=== PATIENT | female | born 1965 | race Caucasian/White ===

== ENCOUNTER → 2017-09-27 | Outpatient (CLI) | payer OTHER ==
--- NOTE | 2017-09-27 14:32 | US ---
EXAMINATION TYPE: US pelvis complete transvag DATE OF EXAM: 09/27/2017 COMPARISON: Ultrasound 10/19/2012 CLINICAL HISTORY: R10.814 Left lower quadrant abdominal tenderness. TECHNIQUE: Transvaginal (TV) and Transabdominal (TA) . Transabdominal sonographic images of the pel vis were acquired. Transvaginal sonographic images were medically necessary to better assess the fol lowing anatomy: Date of LMP: 2 to 3 months prior, patient unsure which EXAM MEASUREMENTS: Uterus: 8.4 x 6.2 x 6.6 cm Endometrial Stripe: 0.9 cm Right Ovary: Obscured by overlying bowel gas Left Ovary: 3.3 x 2.0 x 2.2 cm 1. Uterus: Retroverted, 3 fibroids noted (seen previously as well) 1.) upper 3.5 x 2.4 x 2.9cm, 2.) lower, 2.4 x 1.7 x 2.3cm 3.)1.2 x 0.9 x 1.1cm 2. Endometrium: 0.9cm, 2 to 3 months since last menses, patient 51 3. Right Ovary: Obscured by overlying bowel gas 4. Left Ovary: simple appearing cyst measuring 2.6 x 1.7 x 1.7cm 5. Bilateral Adnexa: wnl 6. Posterior cul-de-sac: wnl IMPRESSION: 1. Small uterine fibroids. 2. Simple left ovarian cyst.
== END | disposition home or self-care (01) ==
LOC: RADUSWWP 13:36
PROVIDERS: ATTEND Family Medicine
DX: D25.9 Leiomyoma of uterus, unspecified (principal); N83.202 Unspecified ovarian cyst, left side
CPT/HCPCS: 76830; 76856

== ENCOUNTER → 2017-11-01 | Outpatient (CLI) | payer OTHER ==
--- NOTE | 2017-11-01 12:42 | MM ---
Reason for exam: screening (asymptomatic). Last mammogram was performed 2 years and 11 months ago. History: Family history of breast cancer in paternal aunt. Physical Findings: A clinical breast exam by your physician is recommended on an annual basis and results should be correlated with mammographic findings. MG 3D Screening Mammo W/Cad Bilateral CC and MLO view(s) were taken. Prior study comparison: November 19, 2014, bilateral MG screening mammo w CAD. November 09, 2012, CAD bilateral diagnostic mammogram. The breast tissue is heterogeneously dense. This may lower the sensitivity of mammography. There is a round, stable left central upper mass back to 2012. No suspicious abnormality. Stable left breast upper outer quadrant and lower inner quadrant focal asymmetries. ASSESSMENT: Benign, BI-RAD 2 RECOMMENDATION: Routine screening mammogram of both breasts in 1 year.
== END | disposition home or self-care (01) ==
LOC: RADMAMWWP 07:11
PROVIDERS: ATTEND Family Medicine
DX: Z12.31 Encounter for screening mammogram for malignant neoplasm of breast (principal)
CPT/HCPCS: 77063; 77067

== ENCOUNTER → 2017-11-02 | Outpatient (CLI) | payer OTHER ==
--- NOTE | 2017-11-02 13:28 | US ---
EXAMINATION TYPE: US kidneys/renal and bladder DATE OF EXAM: 11/02/2017 COMPARISON: Xray earlier today. CLINICAL HISTORY: N20.0 Kidney Stones. Pt states left flank pain, recent abnormal xray EXAM MEASUREMENTS: Right Kidney: 11.2 x 5.7 x 5.7 cm Left Kidney: 11.4 x 6.5 x 6.3 cm Right Kidney: No evidence of hydro, possible calculus lower pole= 5mm Left Kidney: Probable, multiple calculi scattered throughout with largest at mid= 1.7 cm, other calcu li sub-centimeter, possible mild hydro seen Bladder: wnl Bilateral Jets seen: No The urinary bladder is anechoic. Bilateral ureteral jets are not seen. No hydronephrosis or suspicio us masses seen in the right-sided kidney on images saved. Nonspecific 5 mm nonshadowing hyperechoic f ocus is marked by technologist lower pole level right kidney. Cortical medullary differentiation left kidney is maintained. There is large shadowing 1.7 cm structu re centrally in left kidney likely reflects pelvic calculus seen on x-ray. There is mild fullness of the calyces on images saved. Smaller adjacent calculi less well seen on ultrasound. IMPRESSION: Confirmation of a 1.7 cm left pelvic calculus believed to be causing mild hydronephrosis. Urology ref erral advised.
== END | disposition home or self-care (01) ==
LOC: RADUSWWP 12:21
PROVIDERS: ATTEND Family Medicine
DX: N13.2 Hydronephrosis with renal and ureteral calculous obstruction (principal)
CPT/HCPCS: 74018; 76770; 87086

== ENCOUNTER → 2017-11-02 | Outpatient (CLI) | payer OTHER ==
--- NOTE | 2017-11-02 11:40 | XR ---
EXAMINATION TYPE: XR abdomen 1V DATE OF EXAM: 11/02/2017 10:43 AM CLINICAL HISTORY: Left lower quadrant pain with gross hematuria. TECHNIQUE: Single supine KUB image of the abdomen is obtained. COMPARISON: None. FINDINGS: There is dominant slightly irregular marginated but oval shaped 18 mm calculus mid pole lev el left kidney overlying left 12th rib. There are 3-5 adjacent smaller calculi throughout the left ki dney. Suspect tiny 2 mm calculus right kidney at L2 level. Overall nonobstructive bowel gas pattern. Visualized osseous structures are intact. IMPRESSION: Dominant 18 mm left sided calculus. Urology referral advised.
== END ==
LOC: RADXRYALE 10:24
PROVIDERS: ATTEND Family Medicine
DX: N20.0 Calculus of kidney (principal)
CPT/HCPCS: 74018

== ENCOUNTER → 2017-12-02 | Outpatient (CLI) | payer OTHER | END | disposition home or self-care (01) | LOC: LABPAT 16:55 | PROVIDERS: ATTEND Urology | DX: Z01.812 Encounter for preprocedural laboratory examination (principal); N20.0 Calculus of kidney; R31.29 Other microscopic hematuria | CPT/HCPCS: 87086 ==

== ENCOUNTER → 2017-12-09 | Day surgery (SDC) | payer OTHER ==
[2017-12-06 17:59] VITALS: BMI 33.3
--- NOTE | 2017-12-06 21:50 | P.GSHP ---
History of Present Illness H&P Date: 12/05/17 Chief Complaint: Left flank pain The patient is a 52-year-old white female with a history of urolithiasis. She recently presented with a two-week history of left flank and left lower quadrant abdominal pain. She was found to have mild left hydronephrosis due to a 70 mm left renal pelvic calculus. She underwent left ureteral stent insertion and ESWL. The calculus fragmented, but there is a large intact calculus at the ureteropelvic junction. - Constitutional Constitutional: Reports chills - Gastrointestinal Gastrointestinal: Reports nausea, Reports vomiting - Genitourinary (Female) Genitourinary: Reports kidney stones Past Medical History Past Medical History: No Reported History History of Any Multi-Drug Resistant Organisms: None Reported Past Surgical History: No Surgical Hx Reported Past Anesthesia/Blood Transfusion Reactions: No Reported Reaction Smoking Status: Never smoker - Past Family History Mother Family Medical History: No Reported History Medications and Allergies Home Medications Medication Instructions Recorded Confirmed Type Citalopram Hydrobromide [CeleXA] 20 mg PO DAILY 07/15/15 12/06/17 History Meloxicam [Mobic] 15 mg PO DAILY 07/15/15 12/06/17 History HYDROcodone/APAP 7.5-325MG [[place] 1 tab PO TID 12/06/17 12/06/17 History 7.5-325] Allergies Allergy/AdvReac Type Severity Reaction Status Date / Time No Known Allergies Allergy Verified 12/06/17 17:39 Surgical - Exam - General well developed, well nourished, no distress - Neck no masses, trachea midline - Respiratory normal respiratory effort, clear to auscultation - Cardiovascular Rhythm: regular Abnormal Heart Sounds: no systolic murmur, no diastolic murmur, no rub, no S3 Gallop, no S4 Gallop, no click, no other - Abdomen Abdomen: soft, non tender, no guarding, no rigid, no rebound - Psychiatric oriented to time, oriented to person, oriented to place, speech is normal, memory intact Assessment and Plan (1) Calculus of kidney Status: Acute Code(s): N20.0 - CALCULUS OF KIDNEY SNOMED Code(s): 19893645 Plan: Cystoscopy, left ureteroscopy with holmium laser lithotripsy. The procedure was reviewed in detail with the patient. Potential risks include anesthesia, bleeding, infection, and ureteral perforation. She understands that she has a large stone burden and may require additional procedures.
[~2017-12-09] MED LIST: DEXAMETHASONE SOD PHOSPHATE 10 MG/ML 1 ML VIAL IV ONE; HYDROmorphone (PF) 1 MG/ML ONE; LACTATED RINGERS 1,000 ML IV ONE; LIDOCAINE 1% INJ 10MG/ML (20 ML MDV) ONE; MIDAZOLAM 2 MG/2 ML VIAL ONE; ONDANSETRON 4 MG/2 ML VIAL IVP ONE; PROPOFOL 10 MG/ML 20 ML VIAL IV ONE; SUCCINYLCHOLINE CHLORIDE 100 MG/5 ML SYR IV ONE; ceFAZolin IN SWFI 2 GM/20 ML SYRINGE IVP ONE; fentaNYL (PF) 50 MCG/ML 2 ML AMP ONE
[2017-12-09 08:59] VITALS: RESP 16
--- NOTE | 2017-12-09 09:03 | XR ---
EXAMINATION TYPE: XR KUB DATE OF EXAM: 12/09/2017 COMPARISON: None INDICATION: Preop left kidney stone TECHNIQUE: Single view abdomen frontal projection FINDINGS: There is a normal bowel gas pattern. Psoas margins are normal. No organomegaly is present. There is a 2.5 x 2.1 cm calcification adjacent to a left ureteral stent at the left renal pelvis. A 0 .3 cm inferior pole left renal stone is also noted. IMPRESSION: 1. Stent adjacent to a large left renal pelvic stone
[2017-12-09] MEDS: LACTATED RINGERS 1,000 ML IV SCH ×2 (09:05→09:52)
[2017-12-09 12:55] VITALS: TEMP 96.8
--- NOTE | 2017-12-09 12:55 | FL ---
Fluoroscopy INDICATION: Pain, renal stone FINDINGS: Fluoroscopy time: 39 seconds. Images obtained: 1. IMPRESSIONS: 1. Documentation of fluoroscopy.
--- NOTE | 2017-12-09 13:03 | P.OP ---
Date of Procedure: 12/09/17 Preoperative Diagnosis: Left renal calculus Postoperative Diagnosis: Same Procedure(s) Performed: Cystoscopy, left ureteroscopy with Holmium laser lithotripsy, left ureteral stent change Anesthesia: GETA Surgeon: Luis Manuel Romeo Estimated Blood Loss (ml): 10 IV fluids (ml): 800 Pathology: none sent Condition: stable Disposition: PACU Indications for Procedure: The patient is a 52-year-old white female with a history of urolithiasis. She recently presented with a two-week history of left flank and left lower quadrant abdominal pain. She was found to have mild left hydronephrosis due to a 70 mm left renal pelvic calculus. She underwent left ureteral stent insertion and ESWL. The calculus fragmented, but there is a large intact calculus at the ureteropelvic junction. Operative Findings: Large left upper pole renal calculus, fragmented to completion. Description of Procedure: The patient was taken to the operating room and placed in the dorsolithotomy position, with legs supported in Jacob stirrups. The external genitalia was prepped and draped sterilely. The 30 lens was used to introduce the 22-Congolese Stortz cystoscopic sheath through the urethra and into the bladder under direct vision. The bladder was unremarkable. Grasping forceps were used to grasp the distal end of the left ureteral stent, which was removed along with the cystoscope. A 0.038 inch Glidewire was passed through the left ureteral stent and up to the left renal pelvis. The stent was removed, and an 11/13-Congolese ureteral access catheter was passed over the wire, up to the proximal ureter. The mini flexible ureteroscope was passed through the ureteral access catheter sheath and up to the left renal pelvis. The large calculus was identified within an upper pole calyx. The 200 micron Holmium laser probe was passed through the ureteroscope, and lithotripsy was performed. The calculus was very large, and was partially fragmented as a result of ESWL. Fortunately, the calculus was not particularly dense and ultimately fragmented well. Lithotripsy was continued until there were no residual calculus fragments exceeding 2-3 mm in size. Fluoroscopy was periodically utilized to assess the progress of the procedure. A streak-like opacification was seen on fluoroscopy , but the ureteroscope was advanced into a calyx corresponding with the spot and a calculus was not seen. The ureteroscope was removed along with the ureteral access catheter sheath. The cystoscope was replaced into the bladder. The Glidewire was passed up to the left renal pelvis, and the stent was replaced over the wire. Proper stent positioning was verified fluoroscopically and endoscopically. The bladder was emptied and the cystoscope removed. The patient tolerated the procedure well and was taken to the recovery room in stable condition.
[2017-12-09] MEDS: HYDROmorphone 0.5 MG/0.5 ML SYRINGE IVP PRN ×2 (13:20→13:29)
[2017-12-09 14:12] VITALS: BP 117/76; PULSE 72
== END | disposition home or self-care (01) ==
LOC: OR 08:20
PROVIDERS: ATTEND Urology
DX: N13.2 Hydronephrosis with renal and ureteral calculous obstruction (principal); Z79.1 Long term (current) use of non-steroidal anti-inflammatories (NSAID); Z79.891 Long term (current) use of opiate analgesic; Z79.899 Other long term (current) drug therapy
CPT/HCPCS: 81025; 74018; 52356; C1769; C1758; J2250; J1100; J2405; J2001; J3010; J1170 ×2; J0330; J2704; J0690

== ENCOUNTER → 2018-01-24 | Outpatient (CLI) | payer OTHER ==
--- NOTE | 2018-01-24 08:20 | US ---
EXAMINATION TYPE: US kidneys/renal and bladder DATE OF EXAM: 01/24/2018 COMPARISON: 11/02/2017 CLINICAL HISTORY: N20.0 calculus of Kidney. Hx of renal stones, blasted end of Nov 2017 in left kidne y. No pain. EXAM MEASUREMENTS: Right Kidney: 11.2 x 5.5 x 6.2 cm Left Kidney: 10.9 x 6.0 x 6.5 cm Right Kidney: No hydronephrosis or masses seen Left Kidney: No hydronephrosis or masses seen Bladder: wnl Bilateral Jets seen There is no evidence for hydronephrosis at this point in time. No nephrolithiasis is seen. No harjeet s are identified. The urinary bladder is anechoic. Bilateral ureteral jets are seen. IMPRESSION: The previously seen mild left-sided hydronephrosis has resolved in the interim. The previ ously identified left renal calculus is no longer seen status post lithotripsy.
== END | disposition home or self-care (01) ==
LOC: RADUSWWP 07:38
PROVIDERS: ATTEND Urology
DX: Z09 Encounter for follow-up examination after completed treatment for conditions other than malignant neoplasm (principal); Z87.442 Personal history of urinary calculi; Z98.890 Other specified postprocedural states
CPT/HCPCS: 76770

== ENCOUNTER 2018-07-01 09:35 | Day surgery (SDC) | payer OTHER ==
[2018-06-28 12:29] VITALS: BMI 33.3
[~2018-07-01 09:35] MED LIST changes: -DEXAMETHASONE SOD PHOSPHATE 10 MG/ML 1 ML VIAL IV ONE; -HYDROmorphone (PF) 1 MG/ML ONE; -LACTATED RINGERS 1,000 ML IV ONE; +LACTATED RINGERS 1,000 ML IV SCH; +LIDOCAINE 1% 20 ML VIAL (10MG/ML) FOR IV START INTRADERMA PRN; -LIDOCAINE 1% INJ 10MG/ML (20 ML MDV) ONE; -MIDAZOLAM 2 MG/2 ML VIAL ONE; -ONDANSETRON 4 MG/2 ML VIAL IVP ONE; -PROPOFOL 10 MG/ML 20 ML VIAL IV ONE; -SUCCINYLCHOLINE CHLORIDE 100 MG/5 ML SYR IV ONE; -ceFAZolin IN SWFI 2 GM/20 ML SYRINGE IVP ONE; -fentaNYL (PF) 50 MCG/ML 2 ML AMP ONE
[2018-07-01 10:17] VITALS: RESP 16; TEMP 97.8
[2018-07-01] MEDS ORDERED: PROPOFOL 10 MG/ML 20 ML VIAL IV ONE (10:34)
[2018-07-01 11:06] VITALS: BP 119/80; PULSE 67
--- NOTE | 2018-07-01 11:09 | P.PCN ---
Date of Procedure: 07/01/18 Procedure(s) Performed: BRIEF HISTORY: Patient is a 52-year-old, pleasant, white female, scheduled for an upper endoscopy as a part of evaluation of epigastric pain for the last 2 months duration. She has occasional heartburn and acid regurgitation. There several episodes of this pain in the last 2 months and was started on Prilosec 20 mg daily for a month ago and since then she is doing much better. PROCEDURE PERFORMED: Esophagogastroduodenoscopy with biopsy. PREOPERATIVE DIAGNOSIS:/Epigastric pain. IV sedation per anesthesia. PROCEDURE: After informed consent was obtained, the patient was brought into the endoscopy unit. IV sedation was administered by Anesthesia under continuous monitoring. Initially the Olympus GIF-140 video endoscope was inserted into the mouth. Esophagus intubated without any difficulty. It was gradually advanced into the stomach and duodenum and carefully examined. The bulb and the second part of the duodenum appeared normal. The scope at this time was withdrawn to the stomach, adequately insufflated with air, and upon careful examination, mucosa of the antrum was normal. There were small gastric polyps in the body of the stomach with biopsy. The rest of the body, cardia and the fundus appeared normal. The scope was then withdrawn into the esophagus. The GE junction was located at 39 cm from the incisors. There was a small sliding-type hiatal hernia noted. Also there was a short segment of Long's esophagus extending 5 mm proximal to the GE junction and this was biopsied. The rest of the esophagus appeared normal. There were no erosions or ulcerations seen and the patient tolerated the procedure well. IMPRESSION: 1. Small gastric polyps. 2. Short segment Long's esophagus status post biopsy 3. Small sliding-type Hiatal hernia. RECOMMENDATIONS: The findings of this examination were discussed with the patient as well as her family. She was advised to follow with the biopsy results. She will continue with omeprazole 20 mg daily and follow antireflux measures. If the biopsy shows Long's esophagus she can have a repeat upper endoscopy in 2 years. If she still has persistent episodes of epigastric pain I would recommend also the gallbladder to rule out gallstones.
== END 2018-07-01 11:39 | disposition home or self-care (01) ==
LOC: ORWHC2ENDO 09:35
PROVIDERS: ATTEND Internal Medicine Gastroenterology
DX: K22.70 Barrett's esophagus without dysplasia (principal); K31.7 Polyp of stomach and duodenum; K44.9 Diaphragmatic hernia without obstruction or gangrene; Z79.899 Other long term (current) drug therapy; F17.200 Nicotine dependence, unspecified, uncomplicated; M19.90 Unspecified osteoarthritis, unspecified site; Z79.891 Long term (current) use of opiate analgesic; F32.9 Major depressive disorder, single episode, unspecified
CPT/HCPCS: 81025; 88305; 43239; J2704

== ENCOUNTER → 2019-03-28 | Outpatient (CLI) | payer OTHER ==
--- NOTE | 2019-03-30 11:24 | XR ---
EXAMINATION TYPE: XR abdomen 2V DATE OF EXAM: 03/30/2019 HISTORY: Pain Comparison: None.Single KUB is submitted for interpretation. Findings: Right renal calculi: None Visualized. Right ureteral calculi: None Visualized. Left renal calculi: None Visualized. Left ureteral calculi: 5 mm calculus proximal left ureter at the L4 level. Pelvic calcifications: None Visualized. Bowel gas pattern is unremarkable. No free air. No mass effects. IMPRESSION: 1. 5 mm calculus proximal left ureter at the L4 level.
== END | disposition home or self-care (01) ==
LOC: RADXRYALE 16:10
PROVIDERS: ATTEND Physician Assistant Medical
DX: N20.1 Calculus of ureter (principal); R31.9 Hematuria, unspecified
CPT/HCPCS: 74019

== ENCOUNTER → 2019-09-01 | Outpatient (CLI) | payer OTHER ==
--- NOTE | 2019-09-01 15:32 | XR ---
EXAMINATION TYPE: XR KUB DATE OF EXAM: 09/01/2019 HISTORY: Pain Comparison: None.Single KUB is submitted for interpretation. Findings: Right renal calculi: None Visualized. Right ureteral calculi: None Visualized. Left renal calculi: None Visualized. Left ureteral calculi: 6.6 mm calculus overlies the lower left sacrum and may reflect ureteral calcu arsenio. Pelvic calcifications: None Visualized. Bowel gas pattern is unremarkable. No free air. No mass effects. IMPRESSION: 1. 6.6 mm calculus overlies the lower left sacrum and may reflect ureteral calculus.
== END | disposition home or self-care (01) ==
LOC: RADXRYALE 15:06
PROVIDERS: ATTEND Physician Assistant Medical
DX: N20.1 Calculus of ureter (principal)
CPT/HCPCS: 74018

== ENCOUNTER → 2020-01-02 | Outpatient (CLI) | payer OTHER ==
--- NOTE | 2020-01-02 12:25 | US ---
EXAMINATION TYPE: US kidneys/renal and bladder DATE OF EXAM: 01/02/2020 COMPARISON: NONE CLINICAL HISTORY: 54-year-old female R31.0 GROSS HEMATURIA,R10.9 ABD PAIN. Pain, history of stones. EXAM MEASUREMENTS: Right Kidney: 10.7 x 5.2 x 5.3 cm Left Kidney: 9.7 x 5.3 x 4.7 cm No hydronephrosis on either side. Bladder: Stone seen left bladder measuring 1.3 cm that could be adjacent to or at the left ureteral o rifice. Bilateral Jets seen: Just left jet seen. IMPRESSION: 1. A 1.3 cm calculus is suggested at or just adjacent to the left ureteral orifice at the bladder. Th e left ureteral jet is visualized and argues against ureteral obstruction. A urothelial lesion is con sidered less likely. Three-month follow-up ultrasound to reassess. 2. No hydronephrosis on either side.
== END | disposition home or self-care (01) ==
LOC: RADUSWWP 09:33
PROVIDERS: ATTEND Family Medicine
DX: N21.0 Calculus in bladder (principal)
CPT/HCPCS: 76770

== ENCOUNTER 2020-08-05 00:03 | Emergency (ER) | payer OTHER ==
--- NOTE | 2020-08-05 00:55 | ED ---
Abdominal Pain HPI - General Chief Complaint: Abdominal Pain Stated Complaint: Abd pain Time Seen by Provider: 08/05/20 00:29 Source: patient Mode of arrival: ambulatory Limitations: no limitations - History of Present Illness Initial Comments: This patient is a 54-year-old woman who presents to be evaluated for right lower quadrant and right flank pain that seemed to come on around 10 PM while she was watching television. Patient describes it as sharp and severe. She tried taking a [place] that she has at home should she develop kidney stone pain, but states that she did have vomiting after that and it didn't really help much. The pain is sharp, was severe, but it has for the most part resolved now and she declines analgesic. She also did have nausea and vomiting but that has resolved as well now. No other associated symptoms. MD Complaint: abdominal pain, flank pain Onset/Timin -: hour(s) Location: RLQ, R flank Radiation: none Migration to: no migration Severity: severe Quality: sharp Consistency: now resolved Improves With: nothing Worsens With: nothing Associated Symptoms: nausea, vomiting Treatments Prior to Arrival: other (norco) - Related Data Home Medications Medication Instructions Recorded Confirmed HYDROcodone/APAP 7.5-325MG [[place] 1 tab PO DIRECTED PRN 12/06/17 08/05/20 7.5-325] Ferrous Sulfate [Iron] 325 mg PO DAILY 08/05/20 08/05/20 Previous Rx's Medication Instructions Recorded HYDROcodone/APAP 7.5-325MG [[place] 1 tab PO Q6HR PRN 3 Days #12 tab 08/05/20 7.5-325] Ondansetron Odt [Zofran ODT] 4 mg PO Q8HR PRN #10 tab 08/05/20 Tamsulosin [Flomax] 0.4 mg PO DAILY #14 cap 08/05/20 Allergies Allergy/AdvReac Type Severity Reaction Status Date / Time No Known Allergies Allergy Verified 08/05/20 00:22 Review of Systems ROS Statement: Those systems with pertinent positive or pertinent negative responses have been documented in the HPI. ROS Other: All systems not noted in ROS Statement are negative. Constitutional: Denies: fever, chills Respiratory: Denies: cough, dyspnea Cardiovascular: Denies: chest pain, palpitations, edema, syncope Gastrointestinal: Reports: abdominal pain, nausea, vomiting. Denies: diarrhea, constipation, hematemesis, melena, hematochezia Genitourinary: Denies: dysuria, frequency, hematuria Musculoskeletal: Denies: back pain Skin: Denies: rash Neurological: Denies: headache, weakness, numbness Past Medical History Past Medical History: GERD/Reflux, Osteoarthritis (OA) Additional Past Medical History / Comment(s): HX KIDNEY STONES., ARTHRITIS KNEE PAIN. History of Any Multi-Drug Resistant Organisms: None Reported Past Surgical History: No Surgical Hx Reported Additional Past Surgical History / Comment(s): ESWL, LT URETERAL STENT 11/22/17 Past Anesthesia/Blood Transfusion Reactions: No Reported Reaction Past Psychological History: Depression Smoking Status: Never smoker Past Alcohol Use History: Occasional Past Drug Use History: Marijuana - Past Family History Mother Family Medical History: No Reported History Father Family Medical History: Cancer Additional Family Medical History / Comment(s): PROSTATE & SKIN CANCER. BARRETTS General Exam Limitations: no limitations General appearance: alert, in no apparent distress Head exam: Present: atraumatic, normocephalic Eye exam: Present: normal appearance. Absent: scleral icterus, conjunctival injection ENT exam: Present: normal oropharynx Neck exam: Present: normal inspection Respiratory exam: Present: normal lung sounds bilaterally. Absent: respiratory distress, wheezes, rales, rhonchi, stridor Cardiovascular Exam: Present: regular rate, normal rhythm, normal heart sounds. Absent: systolic murmur, diastolic murmur, rubs, gallop GI/Abdominal exam: Present: soft, tenderness (mild right lower quadrant tenderness without rebound or guarding), normal bowel sounds. Absent: dis tended, guarding, rebound, rigid, mass, pulsatile mass, hernia Extremities exam: Present: normal inspection, normal capillary refill. Absent: pedal edema, calf tenderness Back exam: Present: normal inspection. Absent: CVA tenderness (R), CVA tender ness (L) Neurological exam: Present: alert Skin exam: Present: warm, dry, intact, normal color. Absent: rash Course Vital Signs 08/05/20 08/05/20 08/05/20 00:19 01:35 02:41 Temperature 98.0 F 97.9 F Pulse Rate 84 80 82 Respiratory 18 16 16 Rate Blood Pressure 124/82 130/73 117/68 O2 Sat by Pulse 99 98 98 Oximetry Medical Decision Making - Lab Data Result diagrams: 08/05/20 00:44 08/05/20 00:44 Lab Results 08/05/20 08/05/20 08/05/20 Range/Units 00:44 00:44 00:59 WBC 9.9 (3.8-10.6) k/uL RBC 5.24 (3.80-5.40) m/uL Hgb 11.7 (11.4-16.0) gm/dL Hct 35.8 (34.0-46.0) % MCV 68.4 L (80.0-100.0) fL MCH 22.3 L (25.0-35.0) pg MCHC 32.6 (31.0-37.0) g/dL RDW 14.9 (11.5-15.5) % Plt Count 404 (150-450) k/uL MPV 6.7 Neutrophils % 78 % Lymphocytes % 16 % Monocytes % 4 % Eosinophils % 1 % Basophils % 1 % Neutrophils # 7.7 (1.3-7.7) k/uL Lymphocytes # 1.6 (1.0-4.8) k/uL Monocytes # 0.4 (0-1.0) k/uL Eosinophils # 0.1 (0-0.7) k/uL Basophils # 0.1 (0-0.2) k/uL Hypochromasia Slight Microcytosis Marked Sodium 133 L (137-145) mmol/L Potassium 3.8 (3.5-5.1) mmol/L Chloride 99 (98-107) mmol/L Carbon Dioxide 27 (22-30) mmol/L Anion Gap 7 mmol/L BUN 19 H (7-17) mg/dL Creatinine 1.02 (0.52-1.04) mg/dL Est GFR (CKD-EPI)AfAm 72 (>60 ml/min/1.73 sqM) Est GFR (CKD-EPI)NonAf 62 (>60 ml/min/1.73 sqM) Glucose 133 H (74-99) mg/dL Calcium 9.7 (8.4-10.2) mg/dL Total Bilirubin 0.8 (0.2-1.3) mg/dL AST 23 (14-36) U/L ALT 16 (4-34) U/L Alkaline Phosphatase 114 (38-126) U/L Total Protein 7.0 (6.3-8.2) g/dL Albumin 4.3 (3.5-5.0) g/dL Amylase 64 (30-110) U/L Lipase 87 (23-300) U/L Urine Color Yellow Urine Appearance Cloudy H (Clear) Urine pH 5.5 (5.0-8.0) Ur Specific [place] 1.025 (1.001-1.035) Urine Protein 1+ H (Negative) Urine Glucose (UA) Negative (Negative) Urine Ketones 1+ H (Negative) Urine Blood Large H (Negative) Urine Nitrite Negative (Negative) Urine Bilirubin Negative (Negative) Urine Urobilinogen 2.0 (<2.0) mg/dL Ur Leukocyte Esterase Negative (Negative) Urine RBC 113 H (0-5) /hpf Urine WBC 3 (0-5) /hpf Ur Squamous Epith Cells 4 (0-4) /hpf Urine Bacteria Rare H (None) /hpf Hyaline Casts 3 H (0-2) /lpf Urine Mucus Many H (None) /hpf Disposition Clinical Impression: Calculus of kidney Disposition: HOME SELF-CARE Condition: Good Instructions (If sedation given, give patient instructions): Kidney Stones (ED) Prescriptions: Tamsulosin [Flomax] 0.4 mg PO DAILY #14 cap HYDROcodone/APAP 7.5-325MG [[place] 7.5-325] 1 tab PO Q6HR PRN 3 Days #12 tab PRN Reason: Pain Ondansetron Odt [Zofran ODT] 4 mg PO Q8HR PRN #10 tab PRN Reason: Nausea Is patient prescribed a controlled substance at d/c from ED?: Yes When asked, does pt state using other controlled substances?: No If prescribed controlled substance>3 days was MAPS reviewed?: Prescribed <3 Days If opioid is for acute pain is fill amount 7 days or less?: Yes If Rx opioid, was Start Talking consent form obtained?: Yes Referrals: Saleem Virgen DO [Primary Care Provider] - 1-2 days Rojas Garcia MD [STAFF PHYSICIAN] - 1-2 days
[2020-08-05 01:08] LABS: Albumin 4.3 g/dL (3.5-5.0); Calcium 9.7 mg/dL (8.4-10.2); Potassium 3.8 mmol/L (3.5-5.1); Total Bilirubin 0.8 mg/dL (0.2-1.3)
[2020-08-05 01:31] LABS: Appearance,Urine Cloudy (Clear); Bacteria,Urine Rare /hpf; Bilirubin,Urine Negative (Negative); Blood,Urine Large (Negative); Color,Urine Yellow; Glucose,Urine (UA) Negative (Negative); Hyaline Casts,Urine 3 /lpf (0-2); Ketones,Urine 1+ (Negative); Leukocyte Esterase,Urine Negative (Negative); Mucus,Urine Many /hpf; Nitrite,Urine Negative (Negative); PH, Urine 5.5 (5.0-8.0); Protein,Urine 1+ (Negative); RBC,Urine 113 /hpf (0-5); Specific Gravity,Urine 1.025 (1.001-1.035); Squamous Epithelial Cell,Urine 4 /hpf (0-4); WBC,Urine 3 /hpf (0-5)
[2020-08-05 01:31] LABS: Basophils # (A) 0.1 k/uL (0-0.2); Basophils % (A) 1 %; Eosinophils # (A) 0.1 k/uL (0-0.7); Eosinophils % (A) 1 %; HCT 35.8 % (34.0-46.0); HGB 11.7 gm/dL (11.4-16.0); Hypochromasia Slight; Lymphocytes # (A) 1.6 k/uL (1.0-4.8); Lymphocytes % (A) 16 %; MCH 22.3 pg (25.0-35.0); MCHC 32.6 g/dL (31.0-37.0); MCV 68.4 fL (80.0-100.0); Mean Platelet Volume 6.7; Microcytosis Marked; Monocytes # (A) 0.4 k/uL (0-1.0); Monocytes % (A) 4 %; Neutrophils # (A) 7.7 k/uL (1.3-7.7); Neutrophils % (A) 78 %; Platelet Count 404 k/uL (150-450); RBC 5.24 m/uL (3.80-5.40); RDW 14.9 % (11.5-15.5); WBC 9.9 k/uL (3.8-10.6)
[2020-08-05 01:36] VITALS: RESP 16
[2020-08-05] MEDS ORDERED: TAMSULOSIN 0.4 MG CAP.ER.24H PO STA (02:14)
--- NOTE | 2020-08-05 02:40 | CT ---
EXAM: CT Abdomen and Pelvis Without Intravenous Contrast CLINICAL HISTORY: ITS.REASON CT Reason: stone protocol TECHNIQUE: Axial computed tomography images of the abdomen and pelvis without intravenous contrast. CTDI is 18.17 mGy and DLP is 961.1 mGy-cm. This CT exam was performed using one or more of the following dose reduction techniques: automated exposure control, adjustment of the mA and/or kV according to patient size, and/or use of iterative reconstruction technique. COMPARISON: No relevant prior studies available. FINDINGS: Lung bases: Unremarkable. No mass. No consolidation. ABDOMEN: Liver: Unremarkable. Gallbladder and bile ducts: Unremarkable. No calcified stones. No ductal dilation. Pancreas: Unremarkable. No ductal dilation. Spleen: Unremarkable. No splenomegaly. Adrenals: Unremarkable. No mass. Kidneys and ureters: Nonobstructing bilateral renal stones measuring up to 4 cm on the left and 5 mm on the right. Obstructing 4 mm right proximal ureteral stone with mild right hydroureteronephrosis. Stomach and bowel: Unremarkable. No obstruction. No mucosal thickening. PELVIS: Appendix: No findings to suggest acute appendicitis. Bladder: Unremarkable. No stones. Reproductive: Unremarkable as visualized. ABDOMEN and PELVIS: Intraperitoneal space: Unremarkable. No free air. No significant fluid collection. Bones/joints: No acute fracture. No dislocation. Soft tissues: Small fat containing umbilical hernia. Vasculature: Unremarkable. No abdominal aortic aneurysm. Lymph nodes: Unremarkable. No enlarged lymph nodes. IMPRESSION: 1. Obstructing 4 mm right proximal ureteral stone with mild right hydroureteronephrosis. 2. Small fat containing umbilical hernia.
[2020-08-05 02:43] VITALS: BP 117/68; PULSE 82; TEMP 97.9
== END 2020-08-05 03:00 | disposition home or self-care (01) ==
LOC: EC 00:03
DX: N13.2 Hydronephrosis with renal and ureteral calculous obstruction (principal); K21.9 Gastro-esophageal reflux disease without esophagitis; M17.10 Unilateral primary osteoarthritis, unspecified knee; F32.9 Major depressive disorder, single episode, unspecified; F12.90 Cannabis use, unspecified, uncomplicated; Z79.899 Other long term (current) drug therapy
CPT/HCPCS: 36415; 74176; 80053; 81001; 82150; 83690; 85025; 99284

== ENCOUNTER → 2020-09-06 | Outpatient (CLI) | payer OTHER ==
--- NOTE | 2020-09-09 11:12 | MM ---
Reason for exam: screening (asymptomatic). Last mammogram was performed 2 years and 10 months ago. History: Patient is postmenopausal. Family history of breast cancer in paternal aunt. Physical Findings: A clinical breast exam by your physician is recommended on an annual basis and results should be correlated with mammographic findings. MG 3D Screening Mammo W/Cad Bilateral CC and MLO view(s) were taken. Prior study comparison: November 01, 2017, bilateral MG 3d screening mammo w/cad. November 19, 2014, bilateral MG screening mammo w CAD. The breast tissue is heterogeneously dense. This may lower the sensitivity of mammography. There is no discrete abnormality. ASSESSMENT: Negative, BI-RAD 1 RECOMMENDATION: Routine screening mammogram of both breasts in 1 year.
== END | disposition home or self-care (01) ==
LOC: RADMAMWWP 07:00
PROVIDERS: ATTEND Family Medicine
DX: Z12.31 Encounter for screening mammogram for malignant neoplasm of breast (principal); Z78.0 Asymptomatic menopausal state; Z80.3 Family history of malignant neoplasm of breast
CPT/HCPCS: 77063; 77067

== ENCOUNTER 2020-10-23 07:46 | Day surgery (SDC) | payer OTHER ==
[2020-10-18 11:45] VITALS: BMI 30.7
[~2020-10-23 07:46] MED LIST changes: +LIDOCAINE 1% (10MG/ML) FOR IV START INTRADERMA PRN; -LIDOCAINE 1% 20 ML VIAL (10MG/ML) FOR IV START INTRADERMA PRN
[2020-10-23 08:13] VITALS: TEMP 97
[2020-10-23] MEDS ORDERED: LIDOCAINE 1% INJ 10MG/ML (20 ML MDV) ONE (08:37)
[2020-10-23] MEDS ORDERED: PROPOFOL 10 MG/ML 20 ML VIAL IV ONE (08:37)
--- NOTE | 2020-10-23 08:47 | P.PCN ---
Date of Procedure: 10/23/20 Procedure(s) Performed: BRIEF HISTORY: Patient is a 55-year-old, pleasant, white female scheduled for an upper endoscopy as a part of evaluation of GERD/Long's esophagus and intermittent dysphagia to solids. Lately has been having breakthrough symptoms 2-3 times a week and medications were changed from Prilosec to Protonix 40 mg daily.. PROCEDURE PERFORMED: Esophagogastroduodenoscopy with biopsy. PREOPERATIVE DIAGNOSIS: GERD/Long's esophagus and intermittent dysphagia to solids. IV sedation per anesthesia. PROCEDURE: After informed consent was obtained, the patient was brought into the endoscopy unit. IV sedation was administered by Anesthesia under continuous monitoring. Initially the Olympus GIF-140 video endoscope was inserted into the mouth. Esophagus intubated without any difficulty. It was gradually advanced into the stomach and duodenum and carefully examined. The bulb and the second part of the duodenum appeared normal. The scope at this time was withdrawn to the stomach, adequately insufflated with air, and upon careful examination, mucosa of the antrum, appeared normal. There were multiple small gastric polyps noted in the proximal to the stomach which were biopsied. Rest of the body, cardia and the fundus appeared normal. The scope was then withdrawn into the esophagus. The GE junction was located at 34 cm from the incisors. Small sliding type hiatal hernia noted. There was short segment of Long's esophagus at the GE junction extending to 3 mm proximal to the GE junction which was biopsied. There were no erosions or ulcerations identified. The rest of the esophagus appeared normal and the patient tolerated the procedure well. IMPRESSION: 1. Short segment Long's esophagus and small hiatal hernia. 2. Multiple small gastric polyps status post biopsy. RECOMMENDATIONS: The findings of this examination were discussed with the patient as well as a family. She was advised to follow with the biopsy results. If the biopsy confirms presence of Long's esophagus he can have a repeat upper endoscopy in 2-3 years She will continue with Protonix 40 mg daily half hour before dinnertime and follow antireflux measures..
[2020-10-23 09:07] VITALS: BP 119/70; PULSE 79; RESP 16
== END 2020-10-23 09:34 | disposition home or self-care (01) ==
LOC: ORWHC2ENDO 07:46
PROVIDERS: ATTEND Internal Medicine Gastroenterology
DX: K21.9 Gastro-esophageal reflux disease without esophagitis (principal); K31.7 Polyp of stomach and duodenum; K44.9 Diaphragmatic hernia without obstruction or gangrene; K22.70 Barrett's esophagus without dysplasia; Z79.899 Other long term (current) drug therapy; Z87.442 Personal history of urinary calculi; F32.9 Major depressive disorder, single episode, unspecified; Z98.890 Other specified postprocedural states
CPT/HCPCS: 88305; 43239; J2001; J2704

== ENCOUNTER → 2022-10-14 | Outpatient (CLI) | payer BC ==
--- NOTE | 2022-10-14 09:10 | MM ---
Reason for Exam: Screening (asymptomatic). Last mammogram was performed 2 year(s) and 1 month(s) ago. Patient History: Menarche at age 11. First Full-Term at age 26. Postmenopausal. Patient has history of breast feeding. Paternal aunt had breast cancer, age 67. Risk Values: Alyson 5 year model risk: 1.4%. NCI Lifetime model risk: 8.7%. Prior Study Comparison: 11/19/2014 Bilateral Screening Mammogram, [facility]. 11/01/2017 Bilateral Screening Mammogram, [facility]. 09/06/2020 Bilateral Screening Mammogram, [facility]. Tissue Density: The breast tissue is heterogeneously dense. This may lower the sensitivity of mammography. Findings: Analyzed By CAD. There is no suspicious group of microcalcifications or new suspicious mass in either breast. Stable chronic nodularity within the left breast. Benign round appearing calcification within the right breast. Overall Assessment: Benign, BI-RAD 2 Management: Screening Mammogram of both breasts in 1 year. A clinical breast exam by your physician is recommended on an annual basis and results should be correlated with mammographic findings. Note on Alyson scores and lifetime risk: 1. A Alyson score greater than 3% is considered moderate risk. If this is the case, consider specialist referral to assess eligibility for a risk reducing agent. If overall lifetime risk for the development of breast cancer is 20% or higher, the patient may qualify for future screening with alternating mammogram and breast MRI. Electronically signed and approved by: Reece Sandoval D.O.
== END | disposition home or self-care (01) ==
LOC: RADMAMWWP 07:04
PROVIDERS: ATTEND Family Medicine
DX: Z12.31 Encounter for screening mammogram for malignant neoplasm of breast (principal); Z78.0 Asymptomatic menopausal state; Z80.3 Family history of malignant neoplasm of breast
CPT/HCPCS: 77063; 77067

== ENCOUNTER → 2023-11-11 | Outpatient (CLI) | payer BC ==
--- NOTE | 2023-11-16 08:56 | MM ---
Reason for Exam: Screening (asymptomatic). Last mammogram was performed 1 year(s) and 1 month(s) ago. Patient History: Menarche at age 11. First Full-Term at age 26. Postmenopausal. Patient has history of breast feeding. Paternal aunt had breast cancer, age 67. Risk Values: Alyson 5 year model risk: 1.5%. NCI Lifetime model risk: 8.3%. Prior Study Comparison: 11/19/2014 Bilateral Screening Mammogram, [facility]. 11/01/2017 Bilateral Screening Mammogram, [facility]. 09/06/2020 Bilateral Screening Mammogram, [facility]. 10/14/2022 Bilateral MG 3D screening mammo w/cad, [facility]. Tissue Density: The breasts are heterogeneously dense, which may obscure small masses. Findings: Analyzed By CAD. Right breast: There is no suspicious group of microcalcifications or new suspicious mass. Left breast: There is no suspicious group of microcalcifications or new suspicious mass. Overall Assessment: Negative, BI-RAD 1 Management: Screening Mammogram of both breasts in [address] [facility] will attempt to contact patient to return for supplemental views and ultrasound if indicated. Patient should continue monthly self-breast exams. A clinical breast exam by your physician is recommended on an annual basis. This exam should not preclude additional follow-up of suspicious palpable abnormalities. Note on Alyson scores and lifetime risk: 1. A Alyson score greater than 3% is considered moderate risk. If this is the case, consider specialist referral to assess eligibility for a risk reducing agent. 2. If overall lifetime risk for the development of breast cancer is 20% or higher, the patient may qualify for future screening with alternating mammogram and breast MRI. Electronically signed and approved by: Gigi Velasquez DO
== END | disposition home or self-care (01) ==
LOC: RADMAMWWP 07:32
PROVIDERS: ATTEND Family Medicine
DX: Z12.31 Encounter for screening mammogram for malignant neoplasm of breast (principal); R92.333 Mammographic heterogeneous density, bilateral breasts; Z78.0 Asymptomatic menopausal state; Z80.3 Family history of malignant neoplasm of breast
CPT/HCPCS: 77063; 77067

== ENCOUNTER 2023-11-16 10:04 | Day surgery (SDC) | payer BC ==
[2023-11-16] MEDS: IV FLUID CONTINUATION 1,000 ML IV ONE (11:35)
[2023-11-16] MEDS: LACTATED RINGERS 1,000 ML IV SCH (11:36)
[2023-11-16 11:38] VITALS: TEMP 98.4
[2023-11-16] MEDS ORDERED: LIDOCAINE 2% (PF) 20 MG/ML 5 ML VIAL ONE (12:17)
[2023-11-16] MEDS ORDERED: PROPOFOL 10 MG/ML 20 ML VIAL IV ONE (12:17)
--- NOTE | 2023-11-16 12:25 | P.PCN ---
Date of Procedure: 11/16/23 Procedure(s) Performed: BRIEF HISTORY: Patient is a 58-year-old, pleasant, white female scheduled for an upper endoscopy as a part of evaluation of GERD/Long's esophagus. She is presently on Protonix 40 mg daily and has occasional breakthrough heartburn. PROCEDURE PERFORMED: Esophagogastroduodenoscopy with biopsy. PREOPERATIVE DIAGNOSIS: GERD/Long's esophagus. IV sedation per anesthesia. PROCEDURE: After informed consent was obtained, the patient was brought into the endoscopy unit. IV sedation was administered by Anesthesia under continuous monitoring. Initially the Olympus GIF-140 video endoscope was inserted into the mouth. Esophagus intubated without any difficulty. It was gradually advanced into the stomach and duodenum and carefully examined. The bulb and the second part of the duodenum appeared normal. The scope at this time was withdrawn to the stomach, adequately insufflated with air, and upon careful examination, mucosa of the antrum, body, cardia and the fundus appeared normal. There were multiple gastric polyps noted in the body and fundus of the stomach and biopsies were done from this area the scope was then withdrawn into the esophagus. Small hiatal hernia noted. The GE junction was located at 36 cm from the incisors. There was short segment of Long's esophagus extending 1 cm proximal to the GE junction and this was biopsied. The esophagus appeared normal. There were no erosions or ulcerations seen and the patient tolerated the procedure well. IMPRESSION: 1. Short segment Long's esophagus s/p biopsy. 2. Small hiatal hernia 3. Multiple gastric polyps s/p biopsies. RECOMMENDATIONS: The findings of this examination were discussed with the patient as well as her family. She was advised to follow-up the biopsy results.. If the biopsy confirms the presence of Long's esophagus recommended repeat upper endoscopy in 3 years. In the meantime continue Protonix 40 mg before dinnertime and follow antireflux measures
[2023-11-16 12:31] VITALS: RESP 19
[2023-11-16 12:48] VITALS: BP 101/62; PULSE 62
== END 2023-11-16 13:02 | disposition home or self-care (01) ==
LOC: ORWHC2ENDO 10:04
PROVIDERS: ATTEND Internal Medicine Gastroenterology
DX: K21.00 Gastro-esophageal reflux disease with esophagitis, without bleeding (principal); K22.70 Barrett's esophagus without dysplasia; K31.7 Polyp of stomach and duodenum; K44.9 Diaphragmatic hernia without obstruction or gangrene; Z83.79 Family history of other diseases of the digestive system; Z79.899 Other long term (current) drug therapy
CPT/HCPCS: 88305; 43239; J2704; J2001

== ENCOUNTER → 2024-11-01 | Outpatient (CLI) | payer BC ==
--- NOTE | 2024-11-03 12:03 | XR ---
EXAMINATION TYPE: XR cervical spine comp DATE OF EXAM: 11/01/2024 11:59 AM COMPARISON: None CLINICAL INDICATION: Female, 59 years old with history of [id number] cervicalgia; PHH, pain TECHNIQUE: 5 views FINDINGS: No prevertebral soft tissue swelling or predental space widening. Moderate facet and uncovertebral maddison int arthropathy especially mid to lower cervical spine. Changes result in mild bony neural foraminal narrowing on the right C3-C4, C5-C6, C6-C7. On the left, changes result in mild bony neural foraminal narrowing at C5-C6. Moderate degenerative disc disease from C5-C7 levels. There is disc space narrow ing and endplate spondylosis here. Straightening of the normal cervical lordosis. Preserved alignment . Normal odontoid view. IMPRESSION: 1. Scattered moderate spondylotic change as above. 2. Mild bony neural foraminal narrowing, right greater than left as outlined above. 3. Straightening of the normal cervical lordosis. No malalignment. [facility], Workstation: [id number], 11/01/2024 12:05 PM
== END | disposition home or self-care (01) ==
LOC: RADXRMAIN 11:34
PROVIDERS: ATTEND Family Medicine
DX: M50.31 Other cervical disc degeneration, high cervical region (principal); M47.812 Spondylosis without myelopathy or radiculopathy, cervical region; M99.71 Connective tissue and disc stenosis of intervertebral foramina of cervical region
CPT/HCPCS: 72050